=== PATIENT | male | born 1990 | race African-American/Black ===

== ENCOUNTER 2020-10-07 07:59 | Emergency (ER) | payer OTHER ==
[~2020-10-07] VITALS: Ht 172.7 cm; Wt 107.0 kg
[2020-10-07 08:04] VITALS: BP 139/94
--- NOTE | 2020-10-07 08:20 | PHYS DOC ---
Past History Past Medical History: No Pertinent History Adult General Chief Complaint Chief Complaint: DENTAL PROBLEM HPI HPI Patient is a 30-year-old male who presents with dental pain. This is an acute on chronic process, states since September 18, 2020 he has been having ongoing left-sided dental pain. He has called local dentist office and scheduled outpatient follow-up which is pending completion of October 19, 2020. He reports he has been taking ibuprofen and Tylenol as needed for pain but admits certain foods cause increased pain. Also states he has had increased gingival swelling and erythema around his left jaw for past x1 week. No fever, no history of immunocompromising conditions, no presence of fluctuant masses/abscesses nor drainage or crepitus. Patient's submandibular area is unchanged without swelling or edema Review of Systems Review of Systems Fourteen body systems of review of systems have been reviewed. See HPI for pertinent positives and negative responses, other adame all other systems are negative, non-pertinent or non-contributory Allergies Allergies Allergies Coded Allergies Type Severity Reaction Last Updated Verified No Known Drug Allergies 10/07/20 No Physical Exam Physical Exam Constitutional: Well developed, well nourished, no acute distress, non-toxic appearance. HENT: Normocephalic, atraumatic, bilateral external ears normal, oropharynx moist, no oral exudates, nose normal. Grossly poor dentition. Numerous dental caries of left upper and lower mouth. Significant infected dental carry on posterior bottom left molar tooth #17 that is erythematous and acutely inflamed without abscess nor drainage. No findings of Elodia's angina or other concerning abscess or other conditions Eyes: PERRLA, EOMI, conjunctiva normal, no discharge. Neck: Normal range of motion, no tenderness, supple, no stridor. Cardiovascular: Heart rate regular per monitor Lungs & Thorax: No respiratory distress or accessory muscle use, bilateral chest rise Abdomen: Abdomen soft, non-tender, bowel sounds present in all quadrants, no guarding or rebound, nonacute abdomen. Skin: Warm, dry, no erythema, no rash. Back: No tenderness, no CVA tenderness. Extremities: No tenderness, no cyanosis, no clubbing, ROM intact, no edema. Neurologic: Alert and oriented X 3, grossly normal motor & sensory function, no focal deficits noted. Psychologic: Affect normal, judgement normal, mood normal. Current Patient Data Vital Signs Vital Signs Date Time Temp Pulse Resp B/P (MAP) Pulse Ox O2 Delivery O2 Flow Rate FiO2 10/07/20 08:04 97.5 84 16 139/94 (109) 100 Room Air EKG EKG [] Radiology/Procedures Radiology/Procedures [] Heart Score Risk Factors: Risk Factors: DM, Current or recent (<one month) smoker, HTN, HLP, family history of CAD, obesity. Risk Scores: Risk Factors: DM, Current or recent (<one month) smoker, HTN, HLP, family history of CAD, obesity. Course & Med Decision Making Course & Med Decision Making Discussed with the patient all findings and diagnostic testing. I discussed most likely diagnosis of infected dental caries without abscess, Elodia's angina or other emergent and/or surgical dental condition. I stressed need for close outpatient follow-up to review today's ER visit. I advised patient to call his dentist office and see if he can push up his appointment that is currently scheduled October 192020. Patient given prescription for amoxicillin and continued supportive care advised with good oral hygiene, mouthwashes, and Tylenol and/or NSAIDs for pain control recommended. Strict return precautions were also discussed at length with good understanding by patient. Patient voiced understanding and agreement with the plan. Patient knows to come back for repeat evaluation if concerning signs or symptoms present prior to outpatient follow-up. Hemodynamically stable, ambulatory and well-appearing at time of disposition. Dragon Disclaimer Dragon Disclaimer This electronic medical record was generated, in whole or in part, using a voice recognition dictation system. Departure Departure: Impression: Primary Impression: Infected dental carries Disposition: 01 DC HOME SELF CARE/HOMELESS Condition: STABLE Referrals: PCP,NO (PCP) Patient Instructions: Dental Caries, Dental Pain Additional Instructions: You were seen for dental pain. There there is concern for developing infection of your left-sided dental caries. As such, you were prescribed amoxicillin which she could you should take as written to completion. Take Ibuprofen (600- 800mg) and Tylenol (500-650mg) alternating every 4-6 hours to help with inflammation and pain while you contact a dentist for further care. I would advise you to contact your dentist and see if you can push up your appointment for evaluation that is currently scheduled for October 19, 2020. You should return to the ED if you develop worsening pain, fever > 101, swelling, redness, or any other new or concerning symptoms. Unfortunately, your pain is not likely to improve without seeing a dentist for further evaluation and treatment of your poor dentition and dental caries. Scripts Amoxicillin (AMOXICILLIN) 500 Mg Tablet 1 TAB PO TID for Dental Carries for 5 Days, #15 TAB Prov: MARITZA BELTRAN DO 10/07/20 MARITZA BELTRAN DO Oct 07, 2020 08:20
[2020-10-07] MEDS ORDERED: AMOX500T PO (08:49)
== END 2020-10-07 08:53 | disposition home or self-care (01) ==
LOC: ER 07:59
DX: K02.9 Dental caries, unspecified (principal)
CPT/HCPCS: 99283-25